=== PATIENT | male | born 1950 | race Caucasian/White ===

== ENCOUNTER → 2017-01-31 | Outpatient (CLI) | payer OTHER | LOC: FCPNEURO 23:28 | PROVIDERS: ATTEND Psychiatry & Neurology Sleep Medicine | DX: G47.33 Obstructive sleep apnea (adult) (pediatric) (principal) ==

== ENCOUNTER → 2017-08-06 | Outpatient (CLI) | payer OTHER | LOC: CIMAGING 10:17 | PROVIDERS: ATTEND Internal Medicine | DX: M25.761 Osteophyte, right knee (principal); M25.762 Osteophyte, left knee; E66.9 Obesity, unspecified | CPT/HCPCS: 73565-PO ==

== ENCOUNTER 2017-10-08 15:57 | Inpatient (IN) | payer OTHER ==
[2017-10-08] MEDS ORDERED: VANCOMYCIN 1.5 GM in NS 250 ML IV ONE (16:18)
[2017-10-08] MEDS ORDERED: NS 1,000 ML IV ONE (16:18)
--- NOTE | 2017-10-08 16:32 | EDPHY ---
H & P Time Seen by Provider: 10/08/17 16:12 HPI/ROS: HPI Facial swelling and redness. 67-year-old male from the office of his primary care physician Dr. Arvizu upstairs. This patient reports that 2 days ago he noticed a sensation of fullness below his right eye and over his right cheek. He then noticed that the area looked red and felt warm. It has progressively increased to involve his right maxilla area from his upper lip to his lower eyelid. It has also crossed over to the other side of his face and involves the left maxilla area but not to a great extent. He reports that it feels tender and swollen to the touch. He reports fever at home. He denies any associated acute dental pain or dental work recently. Denies any facial lacerations or other facial trauma. No history of sinusitis or upper respiratory infection. He has a history of type 2 diabetes. ROS: Constitutional: No fever, no chills. No weakness. Eyes: No discharge. No changes in vision. ENT: No sore throat. No nasal congestion or rhinorrhea. As above. Respiratory: No cough. No shortness of breath. Cardiac: No chest pain, no palpitations. Gastrointestinal: No abdominal pain, no vomiting, no diarrhea. Genitourinary: No hematuria. No dysuria or increased frequency with urination. Musculoskeletal: No back pain. No neck pain. No myalgias or arthralgias. Skin: As above. Neurological: No headache. No focal weakness or altered sensation. Past medical history: Prostate cancer, type 2 diabetes, uses a CPAP machine for sleep apnea at night. Primary care physician is Dr. Arvizu. His urologist is Dr. Escobedo. He was on testosterone therapy for a while but no longer uses this. Social history: Nonsmoker. Currently here by himself. Has relatives in the area. Denies alcohol. Physical Exam: General Appearance: Alert, no distress. This patient is responding to questions appropriately and in full sentences. This patient appears well- hydrated and well-nourished. Eyes: Pupils equal and round no pallor or injection. No lid edema, erythema or injection. No pain with extraocular movements. ENT, Mouth: Mucous membranes are moist. The pharyngeal tissues are unremarkable. No edema or swelling. No asymmetry suggestive of abscess. No erythema or exudates. Respiratory: There are no retractions, lungs are clear to auscultation with good air movement bilaterally. Cardiovascular: Regular rate and rhythm. No murmur. Gastrointestinal: Obese habitus. Abdomen is soft and nontender, no masses, bowel sounds normal. No focal tenderness at McBurney's point. No Hui sign. Neurological: Motor sensory function is grossly intact. Cranial nerves are normal. Gait is normal. Skin: Warm and dry. He has a diffuse erythema with associated induration and tenderness on palpation involving the right side and left side of the face crossing over his nasal bridge. It tracks on the right side of the face from the upper lip up through the lower eyelid. It involves mostly the area over the maxilla on the left side. No palpable abscess. No bony deformity or crepitus noted on palpation of the area. Musculoskeletal: Neck is supple and nontender. No cervical, submandibular lymphadenopathy. Extremities are symmetrical. All joints range without pain or impingement. Psychiatric: No agitation. No depression. Database: EKG: Imaging: Facial CT with contrast: No evidence of abscess or osteomyelitis. Soft tissue induration edema noted right maxilla extending up from the right lip. Results were discussed with staff radiologist Dr. Rj Brady. Procedures: Emergency department course: IV placed. His vital signs have been reviewed. He is moderately hypertensive. He is tachycardic at 124. Temperature is 37.6degrees. Standard blood work as well as venous lactate and blood cultures to be obtained. He was started on IV normal saline with 1 L to be given over the next hour initially. He will be started on IV vancomycin and IV Invanz after blood cultures obtained. Contrast enhanced CT imaging of the face will be obtained as well. The patient endorses. 6:35 p.m., patient's initial venous lactate is 3.0. Severe sepsis protocol initiated at this time. 2nd lactate drawn. Hospitalist paged for admission. There was a delay in obtaining his results secondary to equipment failure in our laboratory requiring his blood to be sent over to the [facility] for analysis. 7:10 p.m., I spoke with on-call hospitalist Dr. Leonila Hunter. Case discussed in detail with her. She accepts the patient for admission. I have filled out the appropriate transfer paperwork. Patient's vital signs reviewed. He has had almost 2 L of IV normal saline. Borderline tachycardic at this time running at 100-106. He has never been hypotensive or febrile in the emergency department. He is refusing ambulance transfer. The patient competently engages in shared decision making. They demonstrate capacitance to make decisions. He will transfer to [facility] by private vehicle. Differential Diagnosis: The differential diagnosis on this patient includes but is not limited to facial cellulitis, periorbital cellulitis, erysipelas. Facial abscess, retro- orbital cellulitis, facial trauma unlikely. This represents a partial list of diagnoses considered. These considerations are based on history, physical exam , past history, reassessment and diagnostic testing. Smoking Status: Former smoker Constitutional: Initial Vital Signs Temperature (C) 37.6 C 10/08/17 16:03 Heart Rate 124 H 10/08/17 16:03 Respiratory Rate 20 10/08/17 16:03 Blood Pressure 161/77 H 10/08/17 16:03 O2 Sat (%) 93 10/08/17 16:03 O2 Delivery Mode Room Air Allergies/Adverse Reactions: No Known Allergies Allergy (Verified 10/08/17 16:10) Home Medications: Medication Instructions Recorded Aspirin [Aspirin 325 mg (*)] 325 mg PO DAILY 04/18/15 Herbals/Supplements -Info Only 1 ea PO DAILY 04/18/15 [place]-3 Fatty Acids [Fish Oil 1000 1,000 mg PO DAILY 04/18/15 mg (*)] Rosuvastatin Calcium [Crestor 40mg 20 mg PO HS 04/18/15 (*)] metFORMIN HCL [Glucophage 500 mg 1,000 mg PO DAILY@20 04/18/15 (*)] metFORMIN HCL [Glucophage 500 mg 1,500 mg PO DAILY@08 04/18/15 (*)] Gabapentin 10/03/17 Januvia 25 MG (*) 10/03/17 Medical Decision Making - Diagnostics Imaging Results: Imaging Impressions Face CT 10/08/17 16:22 Impression: Findings consistent with facial cellulitis are noted with no abnormal fluid collection seen to suggest abscess. Results called and discussed with Rahel Jeff MD, on 10/08/2017 at 18 :49. - Data Points Laboratory Results: Laboratory Results 10/08/17 16:36 10/08/17 16:36 10/08/17 10/08/17 10/08/17 18:47 16:36 16:36 WBC 9.94 10^3/uL H 10^3/uL (3.80-9.50) RBC 4.11 10^6/uL L 10^6/uL (4.40-6.38) Hgb 12.4 g/dL L g/dL (13.7-17.5) Hct 36.1 % L % (40.0-51.0) MCV 87.8 fL fL (81.5-99.8) MCH 30.2 pg pg (27.9-34.1) MCHC 34.3 g/dL g/dL (32.4-36.7) RDW 13.3 % % (11.5-15.2) Plt Count 124 10^3/uL L 10^3/uL (150-400) MPV 10.6 fL fL (8.7-11.7) Neut % (Auto) 76.7 % H % (39.3-74.2) Lymph % (Auto) 11.7 % L % (15.0-45.0) [place] % (Auto) 9.6 % % (4.5-13.0) Eos % (Auto) 1.0 % % (0.6-7.6) Baso % (Auto) 0.2 % L % (0.3-1.7) Nucleat RBC Rel Count 0.0 % % (0.0-0.2) Absolute Neuts (auto) 7.63 10^3/uL H 10^3/uL (1.70-6.50) Absolute Lymphs (auto) 1.16 10^3/uL 10^3/uL (1.00-3.00) Absolute Monos (auto) 0.95 10^3/uL H 10^3/uL (0.30-0.80) Absolute Eos (auto) 0.10 10^3/uL 10^3/uL (0.03-0.40) Absolute Basos (auto) 0.02 10^3/uL 10^3/uL (0.02-0.10) Absolute Nucleated RBC 0.00 10^3/uL 10^3/uL (0-0.01) Immature Gran % 0.8 % % (0.0-1.1) Immature Gran # 0.08 10^3/uL 10^3/uL (0.00-0.10) PT 12.6 SEC SEC (12.0-15.0) INR 0.95 (0.83-1.16) APTT 26.9 SEC SEC (23.0-38.0) VBG Lactic Acid 2.0 mmol/L mmol/L (0.7-2.1) Sodium Potassium Chloride Carbon Dioxide Anion Gap BUN Creatinine Estimated GFR Glucose Calcium Total Bilirubin Conjugated Bilirubin Unconjugated Bilirubin AST ALT Alkaline Phosphatase Total Protein Albumin 10/08/17 10/08/17 16:36 16:31 WBC RBC Hgb Hct MCV MCH MCHC RDW Plt Count MPV Neut % (Auto) Lymph % (Auto) [place] % (Auto) Eos % (Auto) Baso % (Auto) Nucleat RBC Rel Count Absolute Neuts (auto) Absolute Lymphs (auto) Absolute Monos (auto) Absolute Eos (auto) Absolute Basos (auto) Absolute Nucleated RBC Immature Gran % Immature Gran # PT INR APTT VBG Lactic Acid 3.0 mmol/L H mmol/L (0.7-2.1) Sodium 136 mEq/L mEq/L (134-144) Potassium 4.3 mEq/L mEq/L (3.5-5.2) Chloride 100 mEq/L mEq/L (97-110) Carbon Dioxide 21 mEq/l L mEq/l (22-31) Anion Gap 15 mEq/L mEq/L (8-16) BUN 17 mg/dL mg/dL (7-23) Creatinine 0.7 mg/dL mg/dL (0.7-1.3) Estimated GFR > 60 Glucose 189 mg/dL H mg/dL (70-100) Calcium 9.8 mg/dL mg/dL (8.5-10.4) Total Bilirubin 0.6 mg/dL mg/dL (0.1-1.4) Conjugated Bilirubin 0.4 mg/dL mg/dL (0.0-0.5) Unconjugated Bilirubin 0.2 mg/dL mg/dL (0.0-1.1) AST 30 IU/L IU/L (17-59) ALT 57 IU/L IU/L (21-72) Alkaline Phosphatase 69 IU/L IU/L (38-126) Total Protein 7.3 g/dL g/dL (6.3-8.2) Albumin 4.2 g/dL g/dL (3.5-5.0) Medications Given: Discontinued Medications Ertapenem (Invanz) 1 gm IVP EDNOW ONE PRN Reason: Protocol Stop: 10/08/17 19:08 Last Admin: 10/08/17 19:14 Dose: 1 gm Sodium Chloride (Ns) 1,000 mls @ 0 mls/hr IV ONCE ONE; Wide Open PRN Reason: Protocol Stop: 10/08/17 16:19 Last Admin: 10/08/17 16:34 Dose: 1,000 mls Vancomycin HCl 1.5 gm/ Sodium (Chloride) 250 mls @ 250 mls/hr IV EDNOW ONE PRN Reason: Protocol Stop: 10/08/17 17:17 Last Admin: 10/08/17 16:34 Dose: 250 mls Sodium Chloride (Ns) 4,200 mls @ 8,400 mls/hr 30 ml/kg infuse over 30 min ( 4200 ml) IV EDNOW ONE PRN Reason: Protocol Stop: 10/08/17 19:00 Last Admin: 10/08/17 18:46 Dose: 2,000 mls Departure - Departure Disposition: [facility] Acute Clinical Impression: Facial cellulitis, Hyperglycemia
[2017-10-08 16:43] LABS: % IMMATURE GRANULYOCYTES 0.8 % (0.0-1.1); ABSOLUTE IMMATURE GRANULOCYTES 0.08 10^3/uL (0.00-0.10); ADD DIFF? NO; ADD MORPH? NO; ADD SCAN? NO; ATYPICAL LYMPHOCYTE FLAG 0 (0-99); FRAGMENT RBC FLAG 0 (0-99); HEMATOCRIT 36.1 % (40.0-51.0); HEMOGLOBIN 12.4 g/dL (13.7-17.5); LEFT SHIFT FLG 10 (0-99); LIPEMIA HEMOLYSIS FLAG 90 (0-99); MEAN CELL HEMOGLOBIN 30.2 pg (27.9-34.1); MEAN CELL HEMOGLOBIN CONCENTR. 34.3 g/dL (32.4-36.7); MEAN CELL VOLUME 87.8 fL (81.5-99.8); MEAN PLATELET VOLUME 10.6 fL (8.7-11.7); PLATELET CLUMPS FLAG 0 (0-99); PLATELET COUNT 124 10^3/uL (150-400); RED BLOOD CELL COUNT 4.11 10^6/uL (4.40-6.38); RED CELL DISTRIBUTION WIDTH 13.3 % (11.5-15.2)
[2017-10-08] MEDS ORDERED: IOPAMIDOL (ISOVUE-300) 100 ML BTL ONE (16:49)
[2017-10-08 17:52] LABS: ALANINE AMINOTRANSFERASE 57 IU/L (21-72); ALBUMIN 4.2 g/dL (3.5-5.0); ALKALINE PHOSPHATASE 69 IU/L (38-126); ANION GAP 15 mEq/L (8-16); ASPARTATE AMINOTRANSFERASE 30 IU/L (17-59); BILIRUBIN,TOTAL 0.6 mg/dL (0.1-1.4); BILIRUBIN-CONJUGATED 0.4 mg/dL (0.0-0.5); BILIRUBIN-UNCONJUGATED 0.2 mg/dL (0.0-1.1); CALCIUM 9.8 mg/dL (8.5-10.4); CARBON DIOXIDE 21 mEq/l (22-31); CHLORIDE 100 mEq/L (97-110); CREATININE 0.7 mg/dL (0.7-1.3); GLOMERULAR FILTRATION RATE > 60; GLUCOSE 189 mg/dL (70-100); POTASSIUM 4.3 mEq/L (3.5-5.2); SODIUM 136 mEq/L (134-144); TOTAL PROTEIN 7.3 g/dL (6.3-8.2)
[2017-10-08] MEDS ORDERED: SODIUM CHLORIDE IV ONE (18:31)
[2017-10-08 18:43] LABS: APTT 26.9 SEC (23.0-38.0); INR 0.95 (0.83-1.16); PROTIME(PATIENT) 12.6 SEC (12.0-15.0)
[2017-10-08] MEDS ORDERED: ERTAPENEM 1 GM VIAL IVP ONE (19:07)
[2017-10-08] MEDS ORDERED: oxyCODONE IR 5 MG TAB PO PRN (20:43)
[2017-10-08] MEDS ORDERED: ONDANSETRON DISINTEGRATING 4 MG TAB PO PRN (20:43)
[2017-10-08] MEDS ORDERED: IBUPROFEN 200 MG TAB PO PRN (20:43)
[2017-10-08] MEDS ORDERED: ONDANSETRON 4 MG/2 ML VIAL IVP PRN (20:43)
[2017-10-08] MEDS ORDERED: ACETAMINOPHEN 325 MG TAB PO PRN (20:43)
--- NOTE | 2017-10-08 21:01 | PDGENHP ---
History and Physical - Chief Complaint facial erythema, pain - History of Present Illness 67 yo male with h/o present to ED with facial pain and redness. He noted focal pain along his right mandible 2 days prior to arrival, then he felt the soreness high up on his cheek. This morning, he awoke with redness and pain along his right cheek. He went to see his PCP and was sent to the ED, where his temp was 100.6. He previously denied fevers. He denies rigors, but mild chills. He notes he wears a cpap for past 6 months and has a poor seal. He had a chipped tooth repaired on his right upper jaw 2-3 months ago. Still has some sensitivity, but no pain. He also has a bridge for his upper teeth, which he removes at night, but notes the CPAP mask squeezes this area. No CP, SOB, abdmoninal pain, N/V/D. In the ED, he received IV Vancomycin and Invanz after blood cultures were drawn. He is admitted to the hospital for further management. History Information - Allergies/Home Medication List Allergies/Adverse Reactions: No Known Allergies Allergy (Verified 10/08/17 16:10) Home Medications: Aspirin [Aspirin 325 mg (*)] 325 mg PO DAILY 04/18/15 [Last Taken 04/21/15] Herbals/Supplements -Info Only 1 ea PO DAILY 04/18/15 [Last Taken 04/21/15] [place]-3 Fatty Acids [Fish Oil 1000 mg (*)] 1,000 mg PO DAILY 04/18/15 [Last Taken 04/21/15] Rosuvastatin Calcium [Crestor 40mg (*)] 20 mg PO HS 04/18/15 [Last Taken ] metFORMIN HCL [Glucophage 500 mg (*)] 1,000 mg PO DAILY@20 04/18/15 [Last Taken 04/26/15 20:00] metFORMIN HCL [Glucophage 500 mg (*)] 1,500 mg PO DAILY@08 04/18/15 [Last Taken 04/26/15 08:00] Gabapentin 10/03/17 [Last Taken Unknown] Januvia 25 MG (*) 10/03/17 [Last Taken Unknown] I have personally reviewed and updated: family history, medical history, social history, surgical history - Past Medical History diabetes type 2 Additional medical history: sleep apnea - on cpap. Type 2 DM. hyperlipidemia. peripheral neuropathy. h/o prostate cancer - Surgical History Additional surgical history: prostate surgery - Family History Additional family history: dad age 97. mom of kidney failure - Social History Smoking Status: Former smoker Alcohol Use: None Drug Use: None Additional social history: Lives with his sister and her son. He is independent in his ADL's. He is a laborer general. Review of Systems Review of Systems: ROS: 10pt was reviewed & negative except for what was stated in HPI & below Physical Exam Physical Exam: Temp Pulse Resp BP Pulse Ox 36.6 C 114 H 20 162/83 H 94 10/08/17 20:46 10/08/17 20:46 10/08/17 20:46 10/08/17 20:46 10/08/17 20:46 Constitutional: no apparent distress Eyes: PERRL, other (+facial erythema and induration over right zygoma, extending across nasal bridge and into left zygoma, also involves with philtrum ) Ears, Nose, Mouth, Throat: moist mucous membranes Cardiovascular: regular rate and rhythym Respiratory: no respiratory distress, clear to auscultation Gastrointestinal: normoactive bowel sounds, soft, non-tender abdomen, other ( obese) Skin: warm Musculoskeletal: full muscle strength Neurologic: AAOx3 Psychiatric: interacting appropriately Lab Data & Imaging Review 10/08/17 16:36 10/08/17 16:36 WBC 9.94 10^3/uL (3.80-9.50) H 10/08/17 16:36 RBC 4.11 10^6/uL (4.40-6.38) L 10/08/17 16:36 Hgb 12.4 g/dL (13.7-17.5) L 10/08/17 16:36 Hct 36.1 % (40.0-51.0) L 10/08/17 16:36 MCV 87.8 fL (81.5-99.8) 10/08/17 16:36 MCH 30.2 pg (27.9-34.1) 10/08/17 16:36 MCHC 34.3 g/dL (32.4-36.7) 10/08/17 16:36 RDW 13.3 % (11.5-15.2) 10/08/17 16:36 Plt Count 124 10^3/uL (150-400) L 10/08/17 16:36 MPV 10.6 fL (8.7-11.7) 10/08/17 16:36 Neut % (Auto) 76.7 % (39.3-74.2) H 10/08/17 16:36 Lymph % (Auto) 11.7 % (15.0-45.0) L 10/08/17 16:36 [place] % (Auto) 9.6 % (4.5-13.0) 10/08/17 16:36 Eos % (Auto) 1.0 % (0.6-7.6) 10/08/17 16:36 Baso % (Auto) 0.2 % (0.3-1.7) L 10/08/17 16:36 Nucleat RBC Rel Count 0.0 % (0.0-0.2) 10/08/17 16:36 Absolute Neuts (auto) 7.63 10^3/uL (1.70-6.50) H 10/08/17 16:36 Absolute Lymphs (auto) 1.16 10^3/uL (1.00-3.00) 10/08/17 16:36 Absolute Monos (auto) 0.95 10^3/uL (0.30-0.80) H 10/08/17 16:36 Absolute Eos (auto) 0.10 10^3/uL (0.03-0.40) 10/08/17 16:36 Absolute Basos (auto) 0.02 10^3/uL (0.02-0.10) 10/08/17 16:36 Absolute Nucleated RBC 0.00 10^3/uL (0-0.01) 10/08/17 16:36 Immature Gran % 0.8 % (0.0-1.1) 10/08/17 16:36 Immature Gran # 0.08 10^3/uL (0.00-0.10) 10/08/17 16:36 PT 12.6 SEC (12.0-15.0) 10/08/17 16:36 INR 0.95 (0.83-1.16) 10/08/17 16:36 APTT 26.9 SEC (23.0-38.0) 10/08/17 16:36 VBG Lactic Acid 2.0 mmol/L (0.7-2.1) 10/08/17 18:47 Sodium 136 mEq/L (134-144) 10/08/17 16:36 Potassium 4.3 mEq/L (3.5-5.2) 10/08/17 16:36 Chloride 100 mEq/L (97-110) 10/08/17 16:36 Carbon Dioxide 21 mEq/l (22-31) L 10/08/17 16:36 Anion Gap 15 mEq/L (8-16) 10/08/17 16:36 BUN 17 mg/dL (7-23) 10/08/17 16:36 Creatinine 0.7 mg/dL (0.7-1.3) 10/08/17 16:36 Estimated GFR > 60 10/08/17 16:36 Glucose 189 mg/dL (70-100) H 10/08/17 16:36 Calcium 9.8 mg/dL (8.5-10.4) 10/08/17 16:36 Total Bilirubin 0.6 mg/dL (0.1-1.4) 10/08/17 16:36 Conjugated Bilirubin 0.4 mg/dL (0.0-0.5) 10/08/17 16:36 Unconjugated Bilirubin 0.2 mg/dL (0.0-1.1) 10/08/17 16:36 AST 30 IU/L (17-59) 10/08/17 16:36 ALT 57 IU/L (21-72) 10/08/17 16:36 Alkaline Phosphatase 69 IU/L (38-126) 10/08/17 16:36 Total Protein 7.3 g/dL (6.3-8.2) 10/08/17 16:36 Albumin 4.2 g/dL (3.5-5.0) 10/08/17 16:36 Assessment & Plan Assessment: Facial cellulitis - Suspect CPAP mask may be culprit with poor fit associated with dental bridge and infrequent cleaning. BCx's pending. Lactate normalized. Only 1/4 SIRS on arrival, HR improved after IVF's. -Cont Vanc/Invanz for now -ID consult in am for further atbx recommendations -No CPAP mask tonight due to infection/induration ALANNAH - deferring CPAP mask tonight. RT to evaluate fit and advised pt to return to sleep clinic to troubleshoot fit problems. Also addressed cleaning. -prn O2 during night for now Type 2 DM - bg's generally well controlled with a1c <7 per pt. -SSI -hold metformin given recent contrast study Hyperlipidemia - cont statin Full code DVT PPLX - mod risk, Lovenox Dispo - inpt, suspect he'll require >48 hrs hospitalization for moderately severe facial cellulitis and IV atbx
[2017-10-08] MEDS ORDERED: D50W 25 GM/50 ML SYR IVP PRN (21:10)
[2017-10-09] MEDS: VANCOMYCIN 1.25 GM in D5W 250 ML IV SCH ×2 (00:06→08:20)
[2017-10-09] MEDS: SODIUM CL NASAL 45 ML BTL EACHNARE PRN ×3 (04:35→21:20)
[2017-10-09 05:37] LABS: % IMMATURE GRANULYOCYTES 0.8 % (0.0-1.1); ABSOLUTE IMMATURE GRANULOCYTES 0.05 10^3/uL (0.00-0.10); ADD DIFF? NO; ADD MORPH? NO; ADD SCAN? NO; ATYPICAL LYMPHOCYTE FLAG 0 (0-99); FRAGMENT RBC FLAG 0 (0-99); HEMATOCRIT 33.8 % (40.0-51.0); HEMOGLOBIN 11.8 g/dL (13.7-17.5); LEFT SHIFT FLG 10 (0-99); LIPEMIA HEMOLYSIS FLAG 90 (0-99); MEAN CELL HEMOGLOBIN 31.2 pg (27.9-34.1); MEAN CELL HEMOGLOBIN CONCENTR. 34.9 g/dL (32.4-36.7); MEAN CELL VOLUME 89.4 fL (81.5-99.8); PLATELET CLUMPS FLAG 0 (0-99); PLATELET COUNT 99 10^3/uL (150-400); RED BLOOD CELL COUNT 3.78 10^6/uL (4.40-6.38); RED CELL DISTRIBUTION WIDTH 13.3 % (11.5-15.2)
[2017-10-09 05:53] LABS: ANION GAP 15 mEq/L (8-16); CALCIUM 9.2 mg/dL (8.5-10.4); CARBON DIOXIDE 19 mEq/l (22-31); CHLORIDE 106 mEq/L (97-110); CREATININE 0.6 mg/dL (0.7-1.3); GLOMERULAR FILTRATION RATE > 60; GLUCOSE 153 mg/dL (70-100); SODIUM 140 mEq/L (134-144)
[2017-10-09] MEDS: INSULIN LISPRO 100 UNIT/ML SC SCH ×3 (08:19→18:44)
[2017-10-09] MEDS: glipiZIDE XL 5 MG TAB PO SCH (08:20)
[2017-10-09] MEDS: DOCUSATE SODIUM 100 MG CAP PO SCH (08:20)
[2017-10-09] MEDS: ASPIRIN 325 MG TAB PO SCH (08:20)
--- NOTE | 2017-10-09 08:49 | PDMN ---
Medical Necessity Medical necessity: M70 cellulitis- mod severe facial cellulitis req IV abx - suspect > 2 midnights
[2017-10-09] MEDS ORDERED: ERTAPENEM 1 GM VIAL IVP SCH ×2 (09:00)
[2017-10-09] MEDS ORDERED: ENOXAPARIN 40 MG/0.4 ML SYR SC SCH (09:00)
--- NOTE | 2017-10-09 12:21 | HOSPPROG ---
Hospitalist Progress Note Assessment/Plan: 67y male with c/o face pain and swelling. First encounter, chart reviewed. D/W ID. Facial cellulitis - CPAP mask may be culprit with poor fit associated with dental bridge and infrequent cleaning. BCx's pending. Lactate normalized. -Cont Vanc/Invanz for now -ID consult in am for further abx recommendations -No CPAP mask tonight due to infection/induration ALANNAH - deferring CPAP mask tonight. RT to evaluate fit and advised pt to return to sleep clinic to troubleshoot fit problems. Also addressed cleaning. -prn O2 during night for now Type 2 DM - bg's generally well controlled with a1c <7 per pt. -SSI -hold metformin given recent contrast study Hyperlipidemia - cont statin Full code DVT PPLX - mod risk, Lovenox Dispo - inpt, suspect he'll require >48 hrs hospitalization for moderately severe facial cellulitis and IV atbx Subjective: Feels better. Face still tight and swollen. No other issues. Objective: Vital Signs Temp Pulse Resp BP Pulse Ox 36.6 C 90 14 127/60 H 93 10/09/17 07:40 10/09/17 07:40 10/09/17 07:40 10/09/17 07:40 10/09/17 07:40 Laboratory Results 10/09/17 04:23 10/09/17 04:23 10/08/17 10/09/17 10/10/17 05:59 05:59 05:59 Intake Total 2500 Output Total 650 Balance 1850 PT 12.6 SEC (12.0-15.0) 10/08/17 16:36 INR 0.95 (0.83-1.16) 10/08/17 16:36 - Physical Exam Constitutional: appears nourished, not in pain, obese Eyes: PERRL, anicteric sclera, EOMI Ears, Nose, Mouth, Throat: moist mucous membranes, hearing normal, ears appear normal Cardiovascular: regular rate and rhythym, No JVD, No edema Respiratory: no respiratory distress, no rales or rhonchi, reduced air movement Gastrointestinal: No tenderness, No ascites, No guarding Skin: warm, no induration, erythema, No mottled Musculoskeletal: full muscle strength, normal joint ROM, no joint effusions Neurologic: AAOx3 Psychiatric: interacting appropriately, not anxious, not encephalopathic, thought process linear ICD10 Worksheet Patient Problems: Problems Problem Status Onset Prostate cancer Acute Facial cellulitis Acute Hyperglycemia Acute
--- NOTE | 2017-10-09 15:57 | ASMTCMCOM ---
CM Note CM Note Notes: No needs identified, anticipate will dc home with support of sister when medically stable. CM available for any changes. Date Signed: 10/09/2017 03:56 PM Electronically Signed By:Lakeisha Mattson RN
[2017-10-09] MEDS: ceFAZolin 2 GM/DEXTROSE 100 ML IV SCH (21:15)
[2017-10-09] MEDS: ROSUVASTATIN CALCIUM 40 MG TAB PO SCH (21:16)
[2017-10-09] MEDS: GABAPENTIN 100 MG CAP PO SCH (21:16)
[2017-10-10] MEDS: ceFAZolin 2 GM/DEXTROSE 100 ML IV SCH ×3 (05:24→21:32)
[2017-10-10] MEDS: INSULIN LISPRO 100 UNIT/ML SC SCH ×3 (09:01→17:47)
[2017-10-10] MEDS: ASPIRIN 325 MG TAB PO SCH (09:02)
[2017-10-10] MEDS: glipiZIDE XL 5 MG TAB PO SCH (09:02)
[2017-10-10] MEDS: DOCUSATE SODIUM 100 MG CAP PO SCH (09:02)
--- NOTE | 2017-10-10 09:31 | GCON ---
[f rep st] CONSULTATION LATE ENTRY INFECTIOUS DISEASE CONSULTATION DATE OF CONSULTATION: 10/09/2017 REFERRING PHYSICIAN: Tigist Blunt NP REASON FOR REFERRAL: Facial cellulitis. HISTORY OF PRESENT ILLNESS: The patient is a 67-year-old male with past medical history significant for obstructive sleep apnea and type 2 diabetes, as well as peripheral neuropathy, who was admitted t [facility] on 10/08/2017 secondary to facial pain and erythema. Over the previous 2 days, he noted increased redness and swelling of the soft tissues over the bridge of his nose and luis f ateral cheeks, right greater than left. He was admitted and started on vancomycin and ertapenem. He has tolerated these drugs to date. He denies any further fevers or chills. Still notes swelling an d tightness in the soft tissues of his face. He states he has never had such an illness or presentat ion before. He worries this may be initiated due to his CPAP mask. PAST MEDICAL HISTORY: 1. Type 2 diabetes. 2. Sleep apnea. 3. Hyperlipidemia. 4. History of prostate cancer. 5. Peripheral neuropathy. PAST SURGICAL HISTORY: Status post prostate surgery. ANTIBIOTICS: 1. Vancomycin. 2. Ertapenem. ALLERGIES: Patient has no known drug allergies. SOCIAL HISTORY: Patient has a remote history of tobacco use. No alcohol or drug use. He works as a general expeditor. FAMILY HISTORY: Reviewed but noncontributory. REVIEW OF SYSTEMS: Other than that detailed above in the History of Present Illness, a comprehensive 10-system review is negative. PHYSICAL EXAMINATION: VITAL SIGNS: Temperature maximum is 37.6, temperature current is 36.9, heart rate 95, respiratory rate is 16, blood pressure is 154/73. GENERAL: Patient is a well-formed, obese male, in no acute distress. He is not toxic in appearance. He is alert and oriented x3. He has a pleasant demeanor. HEENT: Normocephalic for age. Atraumatic. No scleral icterus. No oral lesions . No drainage from the nares. Eyes: Lids and conjunctivae are within normal limits. Pupils are eq ual and round bilaterally. NECK: Supple. No meningismus. LUNGS: Clear to auscultation bilaterall y with good effort. HEART: Regular rate and rhythm. No significant peripheral edema. SKIN: Warm and dry to the touch. Patient has a confluent erythematous rash with moderate edema over the bridge of his nose and in the cheeks bilaterally. It stretches inferiorly down to the nasal labial fold. T here are no pustules seen. There are no areas of fluctuance. It is mildly tender to palpation. It is warm to touch, as well. LABORATORY DATA: Patient has a CBC dated 10/09/2017, shows a white blood cell count of 6.65, hemoglo bin of 11.8, hematocrit of 33.8, and platelet count of 99. Differential is within normal limits. Se rum chemistries on 10/09/2017 are all within normal limits. Creatinine 0.6. MICROBIOLOGIC DATA: Patient has blood cultures dated 10/08/2017, which are no growth to date. ASSESSMENT: Facial cellulitis. I agree it is probably secondary to irritation or chafing from his C PAP mask. I think that the likely causes are typical skin bacteria such as streptococcus and staphyl ococci. Vancomycin and ertapenem are broad. I think we can empirically narrow this to cefazolin. T his would also allow for an easy transition to oral Keflex upon enough improvement. This was explain ed to the patient in detail. He voiced his understanding. We will change to cefazolin monotherapy 2 g IV q.8 hours today. PLAN: 1. Discontinue both vancomycin and ertapenem. 2. Start cefazolin 2 g IV q.8 hours. 3. Follow clinical appearance and hopefully discharge the patient in the next 24-48 hours on oral Ke flex. /[id number]/MODL
--- NOTE | 2017-10-10 10:12 | PCMIDPN ---
Assessment/Plan: # Bilateral facial Erysipelas, this is my 1st exam but reported slight improvement over nasolabial fold. Strongly suspect streptococcus. WBC normalized yesterday, AF --continue cefazolin IV, another day or 2 of IV antibiotics then can transition to PO Keflex --keep HOB elevated w sleeping --adjust CPAP fitting Meds, Abx #2 cefazolin 2gm IV q8h Microbiology 10/08/17 16:36 Blood Cx (2) : NGTD Care coordinated with Tigist Blunt [employer]BMAR[employer] WORK[employer] Subjective: patient reports feeling better no diarrhea no rash Objective: Vital Signs Temp Pulse Resp BP Pulse Ox 36.5 C 86 20 143/74 H 96 10/10/17 08:00 10/10/17 08:00 10/10/17 08:00 10/10/17 08:00 10/10/17 08:00 Laboratory Results 10/09/17 04:23 10/09/17 04:23 10/09/17 10/10/17 10/11/17 05:59 05:59 05:59 Intake Total 2500 740 Output Total 650 200 Balance 1850 540 - Physical Exam General Appearance: alert, no apparent distress EENT: other (extensive dental work, MMM), No scleral icterus Neck: supple, No lymphadenopathy (L), No lymphadenopathy (R) Cardiac/Chest: regular rate, rhythm Abdomen: non-tender, soft Skin: erythema (B cheeks and over nasolabial fold), No rash Neuro/Psych: alert, normal mood/affect, oriented x 3 ICD10 Worksheet Patient Problems: Problems Problem Status Onset Facial cellulitis Acute Hyperglycemia Acute Prostate cancer Acute
--- NOTE | 2017-10-10 11:52 | HOSPPROG ---
Hospitalist Progress Note Assessment/Plan: 67y male with c/o face pain and swelling. D/W D Leatha. Facial cellulitis - CPAP mask may be culprit with poor fit associated with dental bridge. BCx's NGTD Lactate normalized. IV cefazolin per ID will transition to PO when improved ALANNAH - deferring CPAP mask currently advised pt to return to sleep clinic to troubleshoot fit problems. prn O2 during night for now Type 2 DM - bg's generally well controlled with a1c <7 per pt. SSI hold metformin given recent contrast study restart tomorrow Hyperlipidemia - cont statin Full code DVT PPLX - mod risk, Lovenox Dispo - inpt,cont IV abx Subjective: FEeling a bit better. Still having facial swelling and itching. Objective: Vital Signs Temp Pulse Resp BP Pulse Ox 36.5 C 86 20 143/74 H 96 10/10/17 08:00 10/10/17 08:00 10/10/17 08:00 10/10/17 08:00 10/10/17 08:00 Laboratory Results 10/09/17 04:23 10/09/17 04:23 10/09/17 10/10/17 10/11/17 05:59 05:59 05:59 Intake Total 2500 740 Output Total 650 200 Balance 1850 540 PT 12.6 SEC (12.0-15.0) 10/08/17 16:36 INR 0.95 (0.83-1.16) 10/08/17 16:36 - Physical Exam Constitutional: appears nourished, not in pain, obese Eyes: PERRL, anicteric sclera, EOMI Ears, Nose, Mouth, Throat: moist mucous membranes, hearing normal, ears appear normal Cardiovascular: regular rate and rhythym, No JVD, No edema Respiratory: no respiratory distress, no rales or rhonchi, reduced air movement Gastrointestinal: normoactive bowel sounds, No tenderness, No ascites Skin: warm, normal color, erythema Musculoskeletal: normal joint ROM, no joint effusions, generalized weakness Neurologic: AAOx3 Psychiatric: interacting appropriately, not anxious, not encephalopathic, thought process linear ICD10 Worksheet Patient Problems: Problems Problem Status Onset Prostate cancer Acute Facial cellulitis Acute Hyperglycemia Acute
[2017-10-10 15:24] VITALS: RESP 18
[2017-10-10] MEDS: ROSUVASTATIN CALCIUM 40 MG TAB PO SCH (21:32)
[2017-10-10] MEDS: GABAPENTIN 100 MG CAP PO SCH (21:32)
[2017-10-10 22:15] VITALS: O2SAT 95
[2017-10-11] MEDS: ceFAZolin 2 GM/DEXTROSE 100 ML IV SCH (05:02)
[2017-10-11 05:41] LABS: HEMOGLOBIN 11.8 g/dL (13.7-17.5); MEAN CELL HEMOGLOBIN 30.3 pg (27.9-34.1); MEAN CELL HEMOGLOBIN CONCENTR. 33.7 g/dL (32.4-36.7); MEAN CELL VOLUME 89.7 fL (81.5-99.8); RED BLOOD CELL COUNT 3.9 10^6/uL (4.40-6.38); RED CELL DISTRIBUTION WIDTH 13.5 % (11.5-15.2)
[2017-10-11 08:00] VITALS: BP 118/65; PULSE 82; TEMP 98.1
[2017-10-11] MEDS: DOCUSATE SODIUM 100 MG CAP PO SCH (08:07)
[2017-10-11] MEDS: ASPIRIN 325 MG TAB PO SCH (08:07)
[2017-10-11] MEDS: glipiZIDE XL 5 MG TAB PO SCH (08:07)
[2017-10-11] MEDS: INSULIN LISPRO 100 UNIT/ML SC SCH ×2 (08:07→11:59)
[2017-10-11] MEDS ORDERED: ENOXAPARIN 40 MG/0.4 ML SYR SC SCH (09:00)
--- NOTE | 2017-10-11 10:00 | PCMIDPN ---
Assessment/Plan: # Bilateral facial Erysipelas, improved today! clearance of erythema most prominent on R --dc okay today, f/u appt in discharge tap, dc on 1 more week cephalexin 500mg PO TID, [facility] --keep HOB elevated w sleeping --use dove soap for cleansing Meds, Abx #3 cefazolin 2gm IV q8h Microbiology 10/08/17 16:36 Blood Cx (2) : NGTD Care coordinated with Tigist Blunt [employer] Subjective: patient feeling well minimal facial pain Objective: Vital Signs Temp Pulse Resp BP Pulse Ox 36.7 C 82 18 118/65 95 10/11/17 07:58 10/11/17 07:58 10/11/17 07:58 10/11/17 07:58 10/11/17 07:58 Laboratory Results 10/11/17 04:23 10/09/17 04:23 10/10/17 10/11/17 10/12/17 05:59 05:59 05:59 Intake Total 740 105 Output Total 200 Balance 540 105 AF General Appearance: alert, no apparent distress EENT: extensive dental work, MMM, No scleral icterus Neck: supple, No lymphadenopathy (L), No lymphadenopathy (R) Cardiac/Chest: regular rate, rhythm Abdomen: non-tender, soft Skin: erythema B cheeks and over nasolabial fold but significant clearing R, mild clearing L Neuro/Psych: alert, normal mood/affect, oriented x 3 - Time Spent With Patient Time Spent with Patient: greater than 25 minutes Time Spent with Patient: Greater than 25 minutes spent on this patients care, greater than 50% of time spent counseling, educating, and coordinating care regarding the above mentioned plan. ICD10 Worksheet Patient Problems: Problems Problem Status Onset Facial cellulitis Acute Hyperglycemia Acute Prostate cancer Acute
--- NOTE | 2017-10-11 15:40 | GDS ---
[f rep st] DISCHARGE SUMMARY DISCHARGE DIAGNOSES: Bilateral facial cellulitis. CONSULTATIONS: Infectious Disease. STUDIES AND PROCEDURES DONE: CT of the face. PHYSICAL EXAM: GENERAL: The patient is alert. VITAL SIGNS: Afebrile at 36.7, pulse 82, respirator y rate is 18, blood pressure is 118/65. He is saturating 95% on room air. I have seen and evaluated the patient on the day of discharge. HOSPITAL COURSE: The patient is a 67-year-old male who presented to the emergency room with complain ts of facial swelling. He was evaluated and diagnosed with bilateral facial erysipelas. During this hospitalization, he was treated with IV Ancef. He has responded well and will be transitioned to ce phalexin for the outpatient setting. His condition is significantly improved. He is not having any pain, and is eager to be discharged home. I have coordinated care with Dr. Holly Zhang of Infectious Disease, who was in agreement with this plan. The patient does have a history of obstructive sleep apnea, and has been recommended to attend the [facility] sleep clinic for further fitting of his CPAP mask. He will also follow up with Primary Care Physician regarding his type 2 diabetes. There are no pending studies. DISCHARGE MEDICATIONS: Please refer to EMR form. I have provided the patient a prescription for Kef gonzalo at the time of disposition. I have not adjusted any of the patient's previously prescribed other home medications. I spent greater than 35 minutes in the care, coordination, and management of the patient's discharge. /[id number]/MODL
--- NOTE | 2017-10-11 17:33 | ASDISCHSUM ---
Discharge Information Plan Status:Home with No Needs Medically Cleared to Leave: Discharge Date:10/11/2017 01:02 PM CM D/C Disposition:Home, Routine, Self-Care ADT D/C Disposition:Home, Routine, Self-Care Projected Discharge Date:10/11/2017 01:02 PM Transportation at D/C: Discharge Delay Reason: Follow-Up Date:10/11/2017 01:02 PM Discharge Slot: Final Diagnosis: Placement Information Patient Contact Information Contact Name:TRISTIN Relationship:Sister Address: City:[place] Alternate Phone: [facility] [address]/Zip Code:[place] Email: Financial Information Financial Class:Medicare Advantage Plans Primary Plan Desc:[facility] ADVANTAGE PLANS Primary Plan Number:[id number] Secondary Plan Desc: Secondary Plan Number: Assessment Information [facility] CM Progress Note CM Note CM Note Notes: No needs identified, anticipate will dc home with support of sister when medically stable. CM available for any changes. Date Signed: 10/09/2017 03:56 PM Electronically Signed By:Lakeisha Mattson RN Intervention Information
== END 2017-10-11 13:02 | disposition home or self-care (01) | DRG 603 ==
LOC: CED 15:57 → CEDHOLD 19:08 → F3E 20:25
PROVIDERS: ADMIT Hospitalist; ATTEND Hospitalist
DX: A46 Erysipelas (principal); G47.33 Obstructive sleep apnea (adult) (pediatric); E11.65 Type 2 diabetes mellitus with hyperglycemia; Z79.84 Long term (current) use of oral hypoglycemic drugs; E78.5 Hyperlipidemia, unspecified; E66.09 Other obesity due to excess calories; Z68.41 Body mass index [BMI] 40.0-44.9, adult; G62.9 Polyneuropathy, unspecified; Z85.46 Personal history of malignant neoplasm of prostate; Z87.891 Personal history of nicotine dependence
CPT/HCPCS: 70487-PO; 80048-PO; 80076-PO; 83605-PO; 85025-PO; 85610-PO; 85730-PO; 96365; J0690; J1335; J1650; J1815; J3370; Q9967

== ENCOUNTER 2017-12-09 12:07 | Day surgery (SDC) | payer OTHER ==
[2017-12-09] MEDS ORDERED: LR 1,000 ML IV ONE (12:28)
--- NOTE | 2017-12-09 13:05 | PDANEPAE ---
ANE History of Present Illness Patient presents for Colonoscopy ANE Past Medical History - Cardiovascular History Hx Hypertension: No Hx Arrhythmias: No Hx Chest Pain: No Hx Coronary Artery / Peripheral Vascular Disease: No Hx CHF / Valvular Disease: No Hx Palpitations: No - Pulmonary History Hx COPD: No Hx Asthma/Reactive Airway Disease: No Hx Recent Upper Respiratory Infection: No Hx Oxygen in Use at Home: No Hx Sleep Apnea: Yes Sleep Apnea Screening Result - Last Documented: Positive Pulmonary History Comment: HX of sleep apnea - cpap - Neurologic History Hx Cerebrovascular Accident: No Hx Seizures: No Hx Dementia: No Neurologic History Comment: Diabetic neuropathy both feet. - Endocrine History Hx Diabetes: Yes Endocrine History Comment: Type 2-oral meds. - Renal History Hx Renal Disorders: Yes Renal History Comment: Enlarged prostate. - Liver History Hx Hepatic Disorders: No - Neurological & Psychiatric Hx Hx Neurological and Psychiatric Disorders: No - Cancer History Hx Cancer: Yes Cancer History Comment: Prostate CA- hormone tx & radiation - Congenital Disorder History Hx Congenital Disorders: No - GI History Hx Gastrointestinal Disorders: No - Other Health History Other Health History: Family hx - unknown blood cotting condition - takes aspirin preventative. FX nose in past-sinus issues. Upper dental bridge. Lower missing tooth. - Chronic Pain History Chronic Pain: No - Surgical History Prior Surgeries: prostate surgery - aborted 2014 ANE Review of Systems Review of Systems: - Exercise capacity METS (RN): 4 METS ANE Patient History - Allergies Allergies/Adverse Reactions: No Known Allergies Allergy (Verified 10/08/17 16:10) - Home Medications Home Medications: Aspirin [Aspirin 325 mg (*)] 325 mg PO DAILY 04/18/15 [Last Taken 04/21/15] Herbals/Supplements -Info Only 1 ea PO DAILY 04/18/15 [Last Taken 04/21/15] [place]-3 Fatty Acids [Fish Oil 1000 mg (*)] 2,000 mg PO BID 04/18/15 [Last Taken 10/08/17 08:00] Rosuvastatin Calcium [Crestor 40mg (*)] 20 mg PO HS 04/18/15 [Last Taken ] metFORMIN HCL [Glucophage 500 mg (*)] 1,000 mg PO DAILY@04/18/15 [Last Taken 10/07/17 21:00] metFORMIN HCL [Glucophage 500 mg (*)] 1,500 mg PO DAILY@04/18/15 [Last Taken 10/08/17 08:00] Gabapentin [Neurontin 100 MG (*)] 300 mg PO HS 10/03/17 [Last Taken 10/07/17] sitaGLIPtin PHOSPHATE [Januvia 100 MG (*)] 100 mg PO DAILY 10/03/17 [Last Taken 10/08/17] Docusate Sodium [Colace 100 MG (*)] 100 mg PO DAILY 10/08/17 [Last Taken ] Sodium Cl Nasal [Charles [place] (*)] 1 spray NS Q2 PRN 10/08/17 [Last Taken Unknown ] glipiZIDE [Glipizide ER] 5 mg PO DAILY 10/08/17 [Last Taken 10/08/17] - NPO status NPO Status: no food or drink >8 hours NPO Since - Liquids (Date): 12/09/17 NPO Since - Liquids (Time): 05:00 NPO Since - Solids (Date): 12/08/17 NPO Since - Solids (Time): 08:00 - Anes Hx Anes Hx: no prior problems - Smoking Hx Smoking Status: Never smoked - Family Anes Hx Family Hx Anesthesia Complications: none ANE Labs/Vital Signs - Vital Signs Blood Pressure: 135/75 Heart Rate: 90 Respiratory Rate: 16 O2 Sat (%): 93 Height: 180.34 cm Weight: 136.078 kg ANE Physical Exam - Airway Neck exam: FROM Mallampati Score: Class 2 Mouth exam: normal dental/mouth exam - Pulmonary Pulmonary: no respiratory distress - Cardiovascular Cardiovascular: regular rate and rhythym - ASA Status ASA Status: III ANE Anesthesia Plan Anesthesia Plan: GA with mask (RBA discussed)
[2017-12-09] MEDS ORDERED: PROPOFOL/EMULSION 500 MG/50 ML BOTTLE IV ONE (13:12)
[2017-12-09] MEDS ORDERED: LIDOCAINE 2% 5 ML SDV ONE (13:14)
--- NOTE | 2017-12-09 13:20 | PDGENHP ---
History & Physical Chief Complaint: hx polyps History of Present Illness: 67 shira old male with a personal history of polyps presents for surveillance colonoscopy. Pertinent Past, Social, Family History: PMHx: alexander, dm. PSurgHx: Prostatectomy. Relevant Physical Exam: HEENT: anicteric. CV: RRR +s1s2. lungs: CTAB. Abd: soft, nt, + bs Cardiorespiratory Assessment: ASA 3
--- NOTE | 2017-12-09 13:36 | GIREPORT ---
[facility] Surgical Services - Endoscopy Department Patient Name: Antonio Barragan Procedure Date: 12/09/2017 1:14 PM Patient Type: Outpatient Attending MD/ ER Physician: Lenin Sorensen MD Procedure: Colonoscopy Indications: High risk colon cancer surveillance: Personal history of colonic polyps Patient Profile: 67 year old male with a personal history of polyps presents for surveil abilio colonoscopy. Providers: Lenin Sorensen MD Medicines: Monitored Anesthesia Care Complications: No immediate complications. Estimated blood loss: None. Description of Procedure: After obtaining informed consent, the scope was passed under direct vis ion. Throughout the procedure, the patient's blood pressure, pulse, and oxyg en saturations were monitored continuously. The Colonoscope with irrigatio n channel was introduced through the anus with the intention of advancing to the cecum. The scope was advanced to the sigmoid colon before the proce dure was aborted. Medications were given. The colonoscopy was performed with out difficulty. The patient tolerated the procedure well. The quality of th e bowel preparation was good. The rectum was photographed. Findings: The perianal and digital rectal examinations were normal. Pertinent negatives include no palpable rectal lesions. Copious quantities of stool was found in the rectum and in the sigmoid colon. Estimated Blood Loss: Estimated blood loss: none. Post Op Diagnosis: - Stool in the rectum and in the sigmoid colon- Poor preparation - No specimens collected. Recommendation: - Discharge patient to home (with escort). - Resume previous diet. - Continue present medications. - Repeat colonoscopy because the bowel preparation was poor. - Needs 2 day prep with 2 whole preps. - Thank you for allowing me to participate in the care of your patient. Attending Participation: I personally performed the entire procedure. Lenin Sorensen MD Lenin Sorensen MD 12/09/2017 1:35:35 PM This report has been signed electronicallyLenin Sorensen MD Number of Addenda: 0 Note Initiated On: 12/09/2017 1:14 PM [email or web address]
[2017-12-09] MEDS ORDERED: LR 500 ML IV PRN (13:50)
[2017-12-09] MEDS ORDERED: NALOXONE HCL 0.4 MG/ML INJ IVP PRN (13:50)
[2017-12-09] MEDS ORDERED: ONDANSETRON 4 MG/2 ML VIAL IVP PRN (13:50)
--- NOTE | 2017-12-09 13:51 | POSTANESTH ---
Post Anesthetic Evaluation Cardiovascular Status: Similar to Pre-Op Cond Respiratory Status: Similar to Pre-op Cond. Level of Consciousness/Mental Status: Alert and Oriented Pain Control: Adequate, Prn Tx Ordered Nausea/Vomiting Control: Adequate, Prn Tx Ordered Complications Possibly Related to Anesthesia: None Noted
[2017-12-09 14:24] VITALS: BP 132/66; O2SAT 96
[2017-12-09 14:36] VITALS: PULSE 80; RESP 18; TEMP 98.6
== END 2017-12-09 14:35 | disposition home or self-care (01) ==
LOC: FSGY 12:07
PROVIDERS: ATTEND Internal Medicine Gastroenterology
PROC: 0DJD8ZZ Inspection of Lower Intestinal Tract, Via Natural or Artificial Opening Endoscopic (ICD-10-PCS; principal; 2017-12-09 13:15)
DX: Z12.11 Encounter for screening for malignant neoplasm of colon (principal); Z86.010 Personal history of colon polyps; G47.33 Obstructive sleep apnea (adult) (pediatric); E11.42 Type 2 diabetes mellitus with diabetic polyneuropathy
CPT/HCPCS: J2704

== ENCOUNTER → 2018-03-14 | Outpatient (CLI) | payer OTHER | LOC: FIMAGING 10:27 | PROVIDERS: ATTEND Internal Medicine | DX: R27.0 Ataxia, unspecified (principal); E11.42 Type 2 diabetes mellitus with diabetic polyneuropathy ==

== ENCOUNTER → 2018-03-26 | Outpatient (CLI) | payer OTHER ==
[~2018-03-26] MED LIST: IOPAMIDOL (ISOVUE 370) 100 ML BTL IV ONE
== END ==
LOC: FIMAGING 09:58
PROVIDERS: ATTEND Internal Medicine
DX: I65.21 Occlusion and stenosis of right carotid artery (principal); E11.9 Type 2 diabetes mellitus without complications
CPT/HCPCS: 70498; Q9967

== ENCOUNTER 2018-07-10 05:38 | Inpatient (IN) | payer OTHER ==
--- NOTE | 2018-07-08 10:27 | GHP ---
DATE OF ADMISSION: 07/10/2018 Mr. Barragan is a 67-year-old male who was found to have critical right carotid stenosis. This is l argely asymptomatic and was found on screening ultrasound. He does have some vague memory symptoms a nd fatigue, but no focal visual or motor symptoms. Ultrasound suggested a 95% right carotid stenosis . CT angiogram was read as only a 50% carotid stenosis. The patient is on aspirin, and a statin med icine. PAST MEDICAL HISTORY: Includes anemia, type 2 diabetes, hyperlipidemia, morbid obesity, obstructive sleep apnea, peripheral neuropathy, prostate cancer, thrombocytopenia. PAST SURGICAL HISTORY: Denies. MEDICATIONS: Acetaminophen, aspirin, Citrucel, Colace, gabapentin, glipizide, ibuprofen, Januvia, me tformin, omega-3 fatty acids, , rosuvastatin, vitamin D, vitamin E. ALLERGIES: No known drug allergies. FAMILY MEDICAL HISTORY: Noncontributory. SOCIAL HISTORY: The patient is a former smoker and quit 30 years ago. REVIEW OF SYSTEMS: Negative for cardiopulmonary symptoms. Positive for diabetes. PHYSICAL EXAMINATION: GENERAL: A 67-year-old male with an increased BMI, in no acute distress. SARAHI NT: Right carotid bruit. Anicteric. CHEST: Clear to auscultation bilaterally. CARDIAC: Regular rate and rhythm. ABDOMEN: Soft, nontender. EXTREMITIES: Warm, well perfused. NEUROLOGIC: Grossly intact. PSYCH: Normal mood and affect. IMPRESSION: This is a 67-year-old male with right carotid stenosis. Both ultrasound and CT angiogra m images were personally reviewed. Usually, we would rely more heavily on the CT angiogram, however, there is a large calcium volume stenosis at the exact origin of the internal carotid artery and we f eel that the ultrasound is more accurate in this situation. I have discussed with the patient's inte rnist and we will plan for right carotid endarterectomy with EEG monitoring. Risks and options have been fully discussed, including, but not limited to, bleeding, infection, nerve injury, damage to josse rounding structures, and even heart attack, , and stroke, and other problems, and he requests to proceed. /[id number]/MODL
[2018-07-10] MEDS ORDERED: ceFAZolin 2 GM/DEXTROSE 100 ML IV ONE (06:02)
[2018-07-10] MEDS ORDERED: LR 1,000 ML IV ONE (06:04)
[2018-07-10] MEDS ORDERED: PROTAMINE SULFATE 50 MG/5 ML VIAL IVP ONE (06:48)
[2018-07-10] MEDS ORDERED: BUPIVACAINE 0.5% 30 ML SDV ONE (06:48)
[2018-07-10] MEDS ORDERED: THROMBIN (BOVINE) 20,000 UNIT SPRAY TP ONE (06:48)
--- NOTE | 2018-07-10 06:53 | PDANEPAE ---
ANE History of Present Illness R CEA ANE Past Medical History - Cardiovascular History Hx Hypertension: No Hx Arrhythmias: No Hx Chest Pain: No Hx Coronary Artery / Peripheral Vascular Disease: No Hx CHF / Valvular Disease: No Hx Palpitations: No Cardiovascular History Comment: CAROTID STENOSIS - Pulmonary History Hx COPD: No Hx Asthma/Reactive Airway Disease: No Hx Recent Upper Respiratory Infection: No Hx Oxygen in Use at Home: No Hx Sleep Apnea: Yes Sleep Apnea Screening Result - Last Documented: Positive Pulmonary History Comment: HX of sleep apnea - cpap - Neurologic History Hx Cerebrovascular Accident: No Hx Seizures: No Hx Dementia: No Neurologic History Comment: Diabetic neuropathy both feet. - Endocrine History Hx Diabetes: Yes Hypothyroid: No Hyperthyroid: No Obesity: severe Endocrine History Comment: NIDDM - Renal History Hx Renal Disorders: Yes Renal History Comment: Enlarged prostate. NOCTURIA - Liver History Hx Hepatic Disorders: No - Neurological & Psychiatric Hx Hx Neurological and Psychiatric Disorders: No - Cancer History Hx Cancer: Yes Cancer History Comment: Prostate CA- hormone tx & radiation - Congenital Disorder History Hx Congenital Disorders: No - GI History GERD: no Hx Gastrointestinal Disorders: No - Other Health History Other Health History: Family hx - unknown blood cotting condition - takes aspirin preventative. FX nose in past-sinus issues. Upper dental bridge. Lower missing tooth. OSTEOARTHRITIS - Chronic Pain History Chronic Pain: Yes (PATRICIA LEGS/FEET) - Surgical History Prior Surgeries: COLONOSCOPY ATTEMPT 12/2017 INCOMPLETE PREP. prostate surgery FOR CA POST INTESTINAL BLOCKAGE 04/2015 ANE Review of Systems Review of Systems: - Exercise capacity METS (RN): 4 METS ANE Patient History - Allergies Allergies/Adverse Reactions: No Known Allergies Allergy (Verified 10/08/17 16:10) - Home Medications Home Medications: Aspirin [Aspirin 325 mg (*)] 325 mg PO DAILY 04/18/15 [Last Taken 07/04/18] Herbals/Supplements -Info Only 1 ea PO DAILY 04/18/15 [Last Taken 07/09/18] [place]-3 Fatty Acids [Fish Oil 1000 mg (*)] 2,000 mg PO BID 04/18/15 [Last Taken 07/09/18] Rosuvastatin Calcium [Crestor 40mg (*)] 20 mg PO HS 04/18/15 [Last Taken ] metFORMIN HCL [Glucophage 500 mg (*)] 1,000 mg PO DAILY@20 04/18/15 [Last Taken 07/09/18] metFORMIN HCL [Glucophage 500 mg (*)] 1,500 mg PO DAILY@08 04/18/15 [Last Taken 07/09/18] Gabapentin [Neurontin 100 MG (*)] 300 mg PO HS 10/03/17 [Last Taken 07/09/18] sitaGLIPtin PHOSPHATE [Januvia 100 MG (*)] 100 mg PO DAILY 10/03/17 [Last Taken 07/09/18] Docusate Sodium [Colace 100 MG (*)] 100 mg PO BID 10/08/17 [Last Taken 07/10/18] glipiZIDE [Glipizide ER] 5 mg PO DAILY 10/08/17 [Last Taken 07/09/18] Methylcellulose PO DAILY 07/04/18 [Last Taken 07/09/18] - NPO status NPO Since - Liquids (Date): 07/09/18 NPO Since - Liquids (Time): 22:00 NPO Since - Solids (Date): 07/09/18 NPO Since - Solids (Time): 19:00 - Smoking Hx Smoking Status: Never smoked - Family Anes Hx Family Anes Hx: none Family Hx Anesthesia Complications: none ANE Labs/Vital Signs - Vital Signs Blood Pressure: 143/71 Heart Rate: 83 Respiratory Rate: 14 O2 Sat (%): 94 Height: 180.34 cm Weight: 136.078 kg ANE Physical Exam - Airway Neck exam: decreased ROM Mallampati Score: Class 3 Mouth exam: normal dental/mouth exam - Pulmonary Pulmonary: clear to auscultation - Cardiovascular Cardiovascular: regular rate and rhythym - ASA Status ASA Status: III ANE Anesthesia Plan Anesthesia Plan: general endotracheal anesthesia Lines/Monitors: arterial line (Possible difficult intubation discussed.)
[2018-07-10] MEDS ORDERED: MIDAZOLAM 2 MG/2 ML VIAL IVP ONE (06:59)
[2018-07-10] MEDS ORDERED: RANITIDINE 50 MG/2 ML VIAL ONE (07:05)
[2018-07-10] MEDS ORDERED: PROPOFOL 200 MG/20 ML VIAL ONE (07:05)
[2018-07-10] MEDS ORDERED: ROCURONIUM 50 MG/5 ML VIAL ONE (07:05)
[2018-07-10] MEDS ORDERED: REMIFENTANIL HCL 1 MG VIAL ONE ×2 (07:05→08:49)
[2018-07-10] MEDS ORDERED: DEXAMETHASONE 4 MG/ML VIAL ONE (07:05)
[2018-07-10] MEDS ORDERED: fentaNYL 100 MCG/2 ML INJ ONE (07:08)
[2018-07-10] MEDS ORDERED: PHENYLEPHRINE 10 MG/ML SDV ONE (07:08)
--- NOTE | 2018-07-10 07:16 | PDHPUP ---
History & Physical Update H&P update statement: This history and physical update is based on an assessment of the patient which was completed after admission or registration (within 24 hours), but prior to the surgery/procedure. H&P update: H&P reviewed & patient examined, no change in patient's condition since H&P completed
[2018-07-10] MEDS ORDERED: HEPARIN 10,000 UNIT/10 ML MDV (1,000 UNIT/ML) ONE (07:36)
[2018-07-10] MEDS ORDERED: ONDANSETRON 4 MG/2 ML VIAL ONE (09:16)
[2018-07-10] MEDS ORDERED: SUGAMMADEX SODIUM 200 MG/2 ML VIAL IVP ONE ×2 (09:33)
--- NOTE | 2018-07-10 09:50 | POSTOPPROG ---
Post Op Note Date of Operation: 07/10/18 Surgeon: Wilfredo Jackson Business Development Intern: ADOLFO SERNA Anesthesiologist: ERIN Anesthesia: GET(General Endotracheal) Pre-op Diagnosis: CRITICAL RT CAROTID STENOSIS Post-op Diagnosis: SAME Indication: CRITICAL STENOSIS Procedure: RIGHT CAROTID ENDARTERECTOMY, DEEP CERVICAL NODE BX Findings: CALCIFIED TIGHT PLAQUE STENOSIS OVER SHORT FOCAL AREA, NO EEG CHANGES Inf/Abcess present in the surg proc area at time of surgery?: No Depth: Organ Space EBL: Minimal Complications: 0 Specimen(s): PLAQUE AND NODES
[2018-07-10] MEDS ORDERED: OXYCODONE/APAP 5/325 TAB PO PRN (09:52)
[2018-07-10] MEDS ORDERED: HYDROmorphONE/DILAUDID 1 MG/ML INJ IVP PRN (09:52)
[2018-07-10] MEDS ORDERED: ONDANSETRON 4 MG/2 ML VIAL IVP PRN ×2 (09:52→09:57)
[2018-07-10] MEDS ORDERED: fentaNYL 100 MCG/2 ML INJ IVP PRN (09:57)
[2018-07-10] MEDS ORDERED: NALOXONE HCL 0.4 MG/ML INJ IVP PRN (09:57)
[2018-07-10] MEDS ORDERED: D5W 1/2 NS W/ 20 KCl/L 1,000 ML IV SCH (10:00)
[2018-07-10] MEDS: ASPIRIN EC 81 MG TAB PO SCH ×2 (11:13→18:16)
--- NOTE | 2018-07-10 11:31 | PDMN ---
Medical Necessity Medical necessity: Pt meets inpt criteria per MD order and [facility] S-300, Carotid Endarterectomy, inpt only surgery, CPT 62298. Est LOS>2MN for management of carotid stenosis undergoing carotid endarterectomy surgery.
--- NOTE | 2018-07-10 15:06 | POSTANESTH ---
Post Anesthetic Evaluation Cardiovascular Status: Normal, Stable, Similar to Pre-Op Cond Respiratory Status: Similar to Pre-op Cond. Level of Consciousness/Mental Status: Can Participate in Eval Pain Control: Adequate, Prn Tx Ordered Nausea/Vomiting Control: Adequate, Prn Tx Ordered Complications Possibly Related to Anesthesia: None Noted
--- NOTE | 2018-07-10 15:13 | ASMTCMCOM ---
CM Note CM Note Notes: Chart reviewed. 67 year old male admitted to the ICU s/p right CEA. No anticipated needs at this point. CM to follow for changes. Plan: TBD Date Signed: 07/10/2018 03:12 PM Electronically Signed By:Loretta Cardenas RN
--- NOTE | 2018-07-10 15:58 | SOAPPROG ---
SOAP Progress Note Assessment/Plan: Assessment: STATUS POST RIGHT CEA/VITAL SIGNS STABLE/WOUND OKAY/NEURO EXAM COMPLETELY INTACT /COMFORTABLE Plan: ADVANCE DIET AND PROBABLY HOME IN THE MORNING 07/10/18 15:57 Objective: Vital Signs Temp Pulse Resp BP Pulse Ox 36.3 C 79 16 138/59 H 96 07/10/18 10:21 07/10/18 14:00 07/10/18 14:00 07/10/18 14:00 07/10/18 14:00 07/09/18 07/10/18 07/11/18 05:59 05:59 05:59 Intake Total 925 Output Total 975 Balance -50 ICD10 Worksheet Patient Problems: Problems Problem Status Onset Facial cellulitis Acute Hyperglycemia Acute Prostate cancer Acute
[2018-07-10] MEDS ORDERED: IBUPROFEN 600 MG TAB PO PRN (18:14)
[2018-07-10] MEDS ORDERED: ACETAMINOPHEN 325 MG TAB PO PRN (18:14)
[2018-07-10] MEDS ORDERED: ENALAPRILAT DIHYDRATE 1.25 MG/ML VIAL IVP PRN (18:35)
[2018-07-10] MEDS ORDERED: metFORMIN HCL 500 MG TAB PO SCH (20:00)
[2018-07-10] MEDS ORDERED: ROSUVASTATIN CALCIUM 20 MG TAB PO SCH (21:00)
[2018-07-10] MEDS ORDERED: PSYLLIUM METAMUCIL 1 PKT PO SCH (21:00)
[2018-07-10] MEDS ORDERED: GABAPENTIN 300 MG CAP PO SCH (21:00)
[2018-07-10] MEDS: OMEGA-3 FATTY ACIDS 1,000 MG CAP PO SCH (21:08)
[2018-07-10] MEDS: DOCUSATE SODIUM 100 MG CAP PO SCH (21:09)
[2018-07-11] MEDS: DOCUSATE SODIUM 100 MG CAP PO SCH (07:50)
[2018-07-11] MEDS: OMEGA-3 FATTY ACIDS 1,000 MG CAP PO SCH (07:50)
[2018-07-11] MEDS: ASPIRIN EC 81 MG TAB PO SCH (07:51)
[2018-07-11] MEDS ORDERED: ASPIRIN 325 MG TAB PO SCH (09:00)
[2018-07-11] MEDS ORDERED: glipiZIDE XL 5 MG TAB PO SCH (09:00)
[2018-07-11] MEDS ORDERED: LACTULOSE 20 GM/30 ML UDCUP PO PRN (09:24)
[2018-07-11] MEDS ORDERED: MAGNESIUM HYDROXIDE 30 ML UDCUP PO PRN (09:24)
[2018-07-11] MEDS ORDERED: BISACODYL 10 MG SUPP PR PRN (09:24)
[2018-07-11] MEDS ORDERED: POLYETHYLENE GLYCOL 3350 17 GM PKT PO PRN (09:24)
--- NOTE | 2018-07-11 09:30 | GOP ---
DATE OF OPERATION: 07/10/2018 SURGEON: Wilfredo Jackson MD PIPE THREADING MACHINE OPERATOR: Fadia Hester, Nurse Practitioner. ANESTHESIOLOGIST: Dr. Ingram. PREOPERATIVE DIAGNOSIS: Critical right carotid stenosis. POSTOPERATIVE DIAGNOSIS: Critical right carotid stenosis. PROCEDURE PERFORMED: 1. Right carotid endarterectomy with patch angioplasty and EEG monitoring. 2. Deep cervical node biopsy. FINDINGS: The patient was found to have a very tight but short calcified plaque at the origin of the internal carotid artery. He had excellent backflow. He had no EEG changes during the procedure, an d he awoke with no neurologic change. DESCRIPTION OF PROCEDURE: The patient was taken to the operating room, where he received satisfactor y general endotracheal anesthesia by Dr. Ingram. He had been systemically heparinized prior to induct ion of general anesthesia. He was prepped and draped in the usual sterile fashion. A longitudinal i ncision was made along the anterior border of the sternocleidomastoid muscle. Dissection extended do wn through the subcutaneous tissue and platysma. Superficial fascia was incised. The carotid arteri al tree was exposed. Deep cervical nodes were dissected free and removed and sent for pathology. He mostasis was obtained with hemoclips and electrocautery. The common facial vein was multiply ligated and divided. The carotid arterial tree was exposed. The common carotid, internal carotid, and exte rnal carotid arteries were all encircled with vessel loops, as was the superior thyroid artery. Afte r adequate exposure was achieved, additional heparin was given and after adequate circulation time, t he vessels were occluded. Arteriotomy was made in the common carotid artery extending through the ti ght plaque into the internal carotid artery. There were no EEG changes. The patient demonstrated ex cellent backflow flow. An expeditious endarterectomy was then done removing the short segment of deo que. The distal end was tacked down with 7-0 Prolene sutures. The wound was irrigated. All debris was removed. A Dacron patch was placed on the artery and sutured in place with a running Hemashield 7 suture. Flow was first established through the external carotid. Actually, all vessels were flush ed prior to completion of the suture line, and then flow was first established through the external c arotid artery and then through the internal carotid. Again, he had no EEG changes. The suture line was hemostatic. Heparin was reversed with protamine. The wound was sprayed with some topical thromb in and closed in layers using 3-0 Vicryl for the superficial fascia, 3-0 Vicryl for the platysma and subcutaneous tissue, and a 4-0 Monocryl subcuticular stitch for the skin. All layers were infiltrate d with 0.5% Marcaine. He tolerated the procedure well, was taken to the recovery room in good condit ion. He awoke neurologically intact, moving all extremities and responding appropriately. /[id number]/MODL
--- NOTE | 2018-07-11 09:40 | SOAPPROG ---
SOAP Progress Note Assessment/Plan: Assessment: 67 y/o M s/p R CEA POD #1 S: No complaints. Denies pain. Denies stroke like symptoms. Biggest concern is having a BM prior to leaving the hospital. Reports that he was readmitted with an SBO last time he had surgery. O:Alert Afebrile BP slightly elevated Neck: incision cdi, nontender No increased WOB, CTA bilaterally Abdomen: normoactive BS Neuro: Grossly intact Plan: Miralax to avoid constipation. Pt would like to stay until he has a BM. Appreciate business services director input for BP. 07/11/18 09:37 Objective: Vital Signs Temp Pulse Resp BP Pulse Ox 36.8 C 82 20 145/52 H 95 07/11/18 07:37 07/11/18 07:37 07/11/18 07:37 07/11/18 07:37 07/11/18 07:37 07/10/18 07/11/18 07/12/18 05:59 05:59 05:59 Intake Total 2032 890 Output Total 1225 Balance 2146 890 ICD10 Worksheet Patient Problems: Problems Problem Status Onset Facial cellulitis Acute Hyperglycemia Acute Prostate cancer Acute
--- NOTE | 2018-07-11 12:18 | ASMTCMCOM ---
CM Note CM Note Notes: Chart reviewed. Likely to dc with no needs. Awaiting BM prior to discharge, No needs identified. CM available should needs arise. Plan: Home with family support. Date Signed: 07/11/2018 12:17 PM Electronically Signed By:Loretta Cardenas RN
--- NOTE | 2018-07-11 14:52 | PDHOSCONS ---
History and Physical - Chief Complaint Acute constipation - History of Present Illness Primary care provider: Dr. Wade Arvizu Primary general surgeon: Dr. Wilfredo Jackson Primary manager eligibility: Dr. Fisher Primary urologist: Dr. Escobedo HPI: 67-year-old male presenting for elective right-sided CEA complicated by acute constipation characterized as inability to move his bowels during his hospitalization, with onset of symptoms during this hospitalization following his CEA, alleviated by MiraLax received on the day of this consultation. The patient has subsequently experienced a moderate volume bowel movement. As he denies any significant right-sided neck pain, and does report that he has intermittently experienced some associated joint pain exacerbated by immobility , alleviated with ibuprofen. He reports that he takes ibuprofen 2-4 times per day, most recently 2 times per day leading up to this hospitalization, on a fairly consistent basis. He denies any change in urine output, and reports that his blood pressure is normally between 120 and 130 when he has it checked at his endocrinology or primary care offices. History Information - Allergies/Home Medication List Allergies/Adverse Reactions: No Known Allergies Allergy (Verified 10/08/17 16:10) Home Medications: Aspirin [Aspirin 325 mg (*)] 325 mg PO DAILY 04/18/15 [Last Taken 07/04/18] Herbals/Supplements -Info Only 1 ea PO DAILY 04/18/15 [Last Taken 07/09/18] Huson-3 Fatty Acids [Fish Oil 1000 mg (*)] 2,000 mg PO BID 04/18/15 [Last Taken 07/09/18] Rosuvastatin Calcium [Crestor 40mg (*)] 20 mg PO HS 04/18/15 [Last Taken ] metFORMIN HCL [Glucophage 500 mg (*)] 1,000 mg PO DAILY@04/18/15 [Last Taken 07/09/18] metFORMIN HCL [Glucophage 500 mg (*)] 1,500 mg PO DAILY@08 04/18/15 [Last Taken 07/09/18] Gabapentin [Neurontin 100 MG (*)] 300 mg PO HS 10/03/17 [Last Taken 07/09/18] sitaGLIPtin PHOSPHATE [Januvia 100 MG (*)] 100 mg PO DAILY 10/03/17 [Last Taken 07/09/18] Docusate Sodium [Colace 100 MG (*)] 100 mg PO BID 10/08/17 [Last Taken 07/10/18] glipiZIDE [Glipizide ER] 5 mg PO DAILY 10/08/17 [Last Taken 07/09/18] Psyllium Husk/Aspartame [Metamucil Fiber Singles Packet] 3.4 gm PO DAILY [Last Taken Unknown] I have personally reviewed and updated: family history, medical history, social history, surgical history - Past Medical History diabetes type 2 (With neuropathy) Additional medical history: sleep apnea - on cpap. Type 2 DM. hyperlipidemia. peripheral neuropathy. h/o prostate cancer. Small-bowel obstruction following prostate surgery - Surgical History Additional surgical history: prostate surgery. 07/10/2018 right-sided CEA - Family History Additional family history: dad age 97. mom of kidney failure. Sibling with prostate cancer at age 61 - Social History Smoking Status: Former smoker Alcohol Use: Occasionally Drug Use: None (Normally independent in ADLs) Additional social history: Lives with his sister and her son. He is independent in his ADL's. He is a general internist and physician leader. Review of Systems Review of Systems: ROS: 10pt was reviewed & negative except for what was stated in HPI & below EENMT: Reports: other (Intermittent neck pain) Gastrointestinal: Reports: constipation Muscolosketal: Reports: other (Intermittent joint pains) Physical Exam Physical Exam: Temp Pulse Resp BP Pulse Ox 36.6 C 93 10 L 138/60 H 95 07/11/18 12:00 07/11/18 14:00 07/11/18 14:00 07/11/18 14:00 07/11/18 14:00 O2 (L/minute) 1 Constitutional: no apparent distress, not in pain, obese, No uncomfortable Eyes: PERRL, anicteric sclera, EOMI Ears, Nose, Mouth, Throat: moist mucous membranes, hearing normal, ears appear normal, no oral mucosal ulcers Cardiovascular: regular rate and rhythym, systolic murmur (2/6 at the sternum), No irregularly irregular, No tachycardia, No edema Respiratory: no respiratory distress, no rales or rhonchi, clear to auscultation Gastrointestinal: normoactive bowel sounds, soft, non-tender abdomen, no palpable masses, distension (Obese) Skin: warm, other (Mild inflammation at right neck surgery site without overt induration or erythema) Neurologic: AAOx3, No facial droop Psychiatric: interacting appropriately, not anxious, not encephalopathic, thought process linear Lab Data & Imaging Review Puncture Site ARTERIAL LINE 07/10/18 08:20 Patient Temperature 37.0 DEGREES 07/10/18 08:20 pCO2 40 mmHg (34-38) H 07/10/18 08:20 pO2 263 mmHg (65-75) H 07/10/18 08:20 Total CO2 19 mEq/L (23-27) L 07/10/18 08:20 ABG pH 7.27 (7.35-7.45) L 07/10/18 08:20 ABG HCO3 18 mEq/L (22-26) L 07/10/18 08:20 ABG O2 Saturation 99 % (92-95) H 07/10/18 08:20 ABG Base Excess -8.4 mEq/L (-2.5-2.5) L 07/10/18 08:20 ABG Hemoglobin 12.4 gm/dL (14.5-17.3) L 07/10/18 08:20 POC Sodium 137 mEq/L (137-146) 07/10/18 08:20 POC Potassium 4.3 mEq/L (3.3-5.0) 07/10/18 08:20 POC Glucose 223 mg/dL (70-100) H 07/10/18 10:48 Ionized Calcium 1.18 MMOL/L (1.12-1.30) 07/10/18 08:20 Assessment & Plan Assessment: 67-year-old male presents for right-sided CEA in the setting of carotid stenosis , complicated by suspected hypertension Plan: 1. Suspected hypertension. Consult it by General surgery to address elevated systolic blood pressures ranging between 120 and 160 throughout this hospitalization -patient reports previous blood pressure ranges between 120 and 130, but he admits that he does not routinely get his blood pressure checked in the outpatient setting and I question whether the patient has developed hypertension in the setting of morbid obesity, obstructive sleep apnea, diabetes -given the patient is in the immediate postoperative window and his systolic blood pressures have been wandering into a range where they can cause postoperative complications, notably greater than 160, I think it is prudent to initiate him on a low antihypertensive medication -discussed with patient, he is amenable to lisinopril 2.5 mg once daily -the patient is amenable to getting his creatinine BUN and lytes checked on the day prior to his follow-up appoint with his primary care provider and he will have his primary care provider follow-up his blood pressure reading within the next week to ensure that he is not being overmedicated and determine whether he requires up titration is medication -KYLE-inhibitor will be ideal in this patient with underlying diabetes 2. Diabetes mellitus type 2 with neuropathy. Glucose levels during this hospitalization 160-223, unclear whether these are fasting, continue patient on his home medications, reviewed outside labs including chemistry from 07/07/2018 demonstrating a normal serum creatinine level 0.6 and most recent hemoglobin A1c of 7.1% -continue outpatient oral glycemic agents 3. Constipation. Reviewed outside records, which demonstrated the patient did have small-bowel obstruction following his urology surgery, the patient has received MiraLax and his constipation has been alleviated -reviewed additional outside records including 10/11/2017 discharge summary by Tigist Blunt, reporting patient was here for facial cellulitis receiving Ancef, has not had any subsequent hospitalizations for bowel issues in the interim 4. Obstructive sleep apnea. Chronic, encouraged ongoing use of CPAP, to mitigate secondary hypertension Patient is medically stable for discharge at this time, and I have communicated my recommendations above with surgery provider Fadia Hester. I provided the patient with a script for his labs, script for his medication.
[2018-07-11] MEDS ORDERED: LISINOPRIL 2.5 MG TAB PO SCH (15:00)
[2018-07-11 15:24] VITALS: BP 147/50
[2018-07-12] MEDS ORDERED: metFORMIN HCL 500 MG TAB PO SCH (08:00)
== END 2018-07-11 15:45 | disposition home or self-care (01) | DRG 39 ==
LOC: F3E 05:38 → F2N 07:02
PROVIDERS: ADMIT Surgery; ATTEND Surgery
PROC: 03CK0ZZ Extirpation of Matter from Right Internal Carotid Artery, Open Approach (ICD-10-PCS; principal; 2018-07-10 07:15)
PROC: 07B30ZX Excision of Right Upper Extremity Lymphatic, Open Approach, Diagnostic (ICD-10-PCS; principal; 2018-07-10 07:15)
DX: I65.21 Occlusion and stenosis of right carotid artery (principal); I10 Essential (primary) hypertension; D64.9 Anemia, unspecified; E11.42 Type 2 diabetes mellitus with diabetic polyneuropathy; E78.5 Hyperlipidemia, unspecified; E66.01 Morbid (severe) obesity due to excess calories; G47.33 Obstructive sleep apnea (adult) (pediatric); K59.00 Constipation, unspecified; Z85.46 Personal history of malignant neoplasm of prostate; Z80.42 Family history of malignant neoplasm of prostate
CPT/HCPCS: C1768; J0690; J1100; J1644; J2250; J2370; J2405; J2704; J2720; J2780; J3010

== ENCOUNTER 2018-07-11 22:17 | Emergency (ER) | payer OTHER ==
[2018-07-11] MEDS ORDERED: IBUPROFEN 200 MG TAB PO ONE (22:46)
--- NOTE | 2018-07-11 22:57 | EDPHY ---
H & P Stated Complaint: BLEEDING INCISION/R CAROTID SX YEST Time Seen by Provider: 07/11/18 22:43 HPI/ROS: HPI The patient presents with swelling and bleeding from his right-sided carotid endarterectomy which was performed yesterday by Dr. Jackson. Patient was discharged from the hospital in the afternoon today. He noticed that the area adjacent to the surgical site was swelling. He then sat on the toilet to have a bowel movement in strained quite a bit. After that he developed some bleeding from the inferior aspect of the wound which was dripping into the sink and onto his abdomen though there were no clots. He does not have any shortness of breath or difficulty swallowing. REVIEW OF SYSTEMS Constitutional: No fever, no chills. Eyes: No discharge. ENT: No sore throat. Cardiovascular: No chest pain, no palpitations. Respiratory: No cough, no shortness of breath. Gastrointestinal: No abdominal pain, no vomiting. Genitourinary: No hematuria. Musculoskeletal: No back pain. Skin: No rashes. Neurological: No headache. PMHx: Postop day 1 from right-sided carotid endarterectomy Soc Hx: Here with family member PHYSICAL General Appearance: Alert, no distress Head: There is an approximately 10 cm surgical incision which superiorly has a 5 cm area of edema and tissue distension, on the most inferior margins of the wound there is a small amount of oozing through a punctate area ENT, Mouth: Mucous membranes moist Respiratory: Breathing comfortably Neurological: A&O, moves all extremities Skin: Warm and dry, no rashes Musculoskeletal: Neck is supple non tender Extremities: symmetrical, full range of motion Psychiatric: Patient is oriented X 3, there is no agitation Source: Patient Exam Limitations: No limitations - Personal History Current Tetanus Diphtheria and Acellular Pertussis (TDAP): No - Medical/Surgical History Hx Asthma: No Hx Chronic Respiratory Disease: No Hx Diabetes: Yes Hx Cardiac Disease: No Hx Renal Disease: No Hx Cirrhosis: No Hx Alcoholism: Yes Hx HIV/AIDS: No Hx Splenectomy or Spleen Trauma: No Other PMH: prostate cancer, diabetes mellitus type 2. ALANNAH-CPAP, R CAROTID SX - Social History Smoking Status: Former smoker Constitutional: Initial Vital Signs Temperature (C) 36.8 C 07/11/18 22:22 Heart Rate 91 07/11/18 22:22 Respiratory Rate 16 07/11/18 22:22 Blood Pressure 162/70 H 07/11/18 22:22 O2 Sat (%) 95 07/11/18 22:22 O2 Delivery Mode Room Air Allergies/Adverse Reactions: No Known Allergies Allergy (Verified 10/08/17 16:10) Home Medications: Medication Instructions Recorded Aspirin [Aspirin 325 mg (*)] 325 mg PO DAILY 04/18/15 Herbals/Supplements -Info Only 1 ea PO DAILY 04/18/15 Sneads-3 Fatty Acids [Fish Oil 1000 2,000 mg PO BID 04/18/15 mg (*)] Rosuvastatin Calcium [Crestor 40mg 20 mg PO HS 04/18/15 (*)] metFORMIN HCL [Glucophage 500 mg 1,000 mg PO DAILY@04/18/15 (*)] metFORMIN HCL [Glucophage 500 mg 1,500 mg PO DAILY@04/18/15 (*)] Gabapentin [Neurontin 100 MG (*)] 300 mg PO HS 10/03/17 sitaGLIPtin PHOSPHATE [Januvia 100 100 mg PO DAILY 10/03/17 MG (*)] Docusate Sodium [Colace 100 MG (*)] 100 mg PO BID 10/08/17 glipiZIDE [Glipizide ER] 5 mg PO DAILY 10/08/17 Acetaminophen [Tylenol 325mg (*)] 650 mg PO Q4HRS PRN tab 10/11/17 Ibuprofen [Motrin (*)] 600 mg PO Q8H PRN tab 10/11/17 Psyllium Husk/Aspartame [Metamucil 3.4 gm PO DAILY 07/10/18 Fiber Singles Packet] Polyethylene Glycol 3350 [Miralax 17 gm PO DAILY PRN pkt 07/11/18 17 gm (*)] Medical Decision Making Differential Diagnosis: 67-year-old male postop day 1 from carotid endarterectomy presents with edema at site of operation with bleeding. I suspect he has a hematoma or seroma in addition to some very minor wound dehiscence. I have consulted with Dr. Wells on-call for Dr. Jackson and he will come to the emergency department to evaluate the patient. The patient was evaluated, pressure dressing was applied and patient was given ice packs. He feels comfortable going home. It is suspected that he has hematoma though there is no evidence of airway involvement. He will follow up with Dr. Jackson later this week. - Data Points Medications Given: Discontinued Medications Ibuprofen (Motrin) 400 mg PO ONCE ONE Stop: 07/11/18 22:47 Last Admin: 07/11/18 22:47 Dose: 400 mg Departure - Departure Disposition: Home, Routine, Self-Care Clinical Impression: Hematoma, Surgical wound dehiscence Condition: Good Instructions: Hematoma (ED) Additional Instructions: Please return to the emergency department if you are worse in any way. You should use ice packs and the dressing that you have been given. Referrals: Wade Arvizu MD [Primary Care Provider] - As per Instructions Wilfredo Jackson MD [Medical Doctor] - As per Instructions
[2018-07-11 23:22] VITALS: BP 163/81
--- NOTE | 2018-07-11 23:59 | GCON ---
DATE OF CONSULTATION: 07/11/2018 CHIEF COMPLAINT: Right neck hematoma. HISTORY OF PRESENT ILLNESS: This is a 67-year-old male who underwent right carotid endarterectomy on the . He had an uneventful hospital course. He was subsequently sent home earlier today, in sta ble condition back on his aspirin. He states that when he went home, there was some mild swelling in his neck, but not to the level of what it was at his presentation tonight. He states that he had a bowel movement. He did strain somewhat and noticed that the superior portion of the incision began t o get a little bit bigger than the inferior portion, which prompted his presentation here. He has no airway issues, no swallowing issues. He is mainly just here to get it checked out. His pain has be en stable. It has been pretty well controlled with ibuprofen alone. Other than the swelling in the area, he has no complaints. PAST MEDICAL HISTORY: Anemia, carotid stenosis, type 2 diabetes, hyperlipidemia, morbid obesity, obs tructive sleep apnea, peripheral neuropathy, prostate cancer, thrombocytopenia. PAST SURGICAL HISTORY: Carotid endarterectomy 1 day ago. CURRENT MEDICATIONS: Include aspirin, some diabetes medications; no other blood thinners. ALLERGIES: None. FAMILY HISTORY: Noncontributory. SOCIAL HISTORY: The patient is a former smoker. He lives in the area. He is here with his son. He denies illicit drug use. REVIEW OF SYSTEMS: A full 10-point review was performed. PHYSICAL EXAMINATION: VITAL SIGNS: Temperature 36.8, blood pressure 163/81, heart rate is 86, and h e is 96% on room air. CONSTITUTIONAL: He is in no distress. He appears comfortable. EYES: His pu pils are equal, round, and reactive to light and accommodation. He has anicteric sclerae. His extra ocular movements are intact. EARS, NOSE, MOUTH, THROAT: Moist mucous membranes. Oral exam shows no intrusion of the oral cavity, no hematomas, no voice changes, no swallowing issues, and a stable air way. CARDIOVASCULAR: He has a regular rate and rhythm. RESPIRATORY: No respiratory distress, rale s, or rhonchi. GI: His abdomen is soft, nondistended, nontender. SKIN: He has a superior hematoma on his neck. He has a sizable incision extending the length of his neck. It is tender to palpation . It is nonpulsatile or fluctuant. The superior portion is greater in the inferior portion. No oth er abrasions or apparent skin findings. MUSCULOSKELETAL: Full strength. Full range of motion. No weakness. NEUROLOGIC: He is alert and oriented x3. His cranial nerves 2-12 are intact. PSYCH: He is interacting appropriately. He is not encephalopathic. He is protecting his airway. LYMPH, HEME , IMMUNOLOGIC: No cervical, groin lymphadenopathy is appreciated. LABS: None. IMAGING: None. ASSESSMENT AND PLAN: 67-year-old male, now 1 day out status post carotid endarterectomy, discharged earlier today; now re-presenting with hematoma in the neck. After evaluating the neck, it feels stab le. I do not feel that this is an arterial bleed. It is likely a slow venous ooze, which was exacer bated with straining. I re-dressed the area. The patient has no airway or swallowing concerns at th is point. I did discuss with him to watch for these if it were to get any worse. I think it is safe to send him home. I asked that he hold all blood thinners through the weekend and try to keep gentl e pressure on the area. He is also going to start a laxative to ensure that he does not get constipa dani. He will call to follow up early next week. /[id number]/MODL
== END 2018-07-11 23:29 | disposition home or self-care (01) ==
DX: L76.32 Postprocedural hematoma of skin and subcutaneous tissue following other procedure (principal); T81.31XA Disruption of external operation (surgical) wound, not elsewhere classified, initial encounter; Z87.891 Personal history of nicotine dependence; Z98.890 Other specified postprocedural states

== ENCOUNTER 2018-07-28 12:37 | Day surgery (SDC) | payer OTHER ==
[2018-07-28] MEDS ORDERED: LIDOCAINE 1% 2 ML INJ ID PRN (12:50)
[2018-07-28] MEDS ORDERED: LR 1,000 ML IV ONE (12:50)
--- NOTE | 2018-07-28 14:14 | PDGENHP ---
History & Physical Chief Complaint: phx polyps History of Present Illness: 68 year old male with a phx of polyps presents for surveillance colonoscopy. Pertinent Past, Social, Family History: See anesthesiology note Relevant Physical Exam: HEENT: anicteric. CV: RRR +s1s2. Lungs: CTAB No w/r/ r. Abd: soft, nt, + Bs Cardiorespiratory Assessment: ASA 3
--- NOTE | 2018-07-28 14:18 | PDANEPAE ---
ANE History of Present Illness h/o polyps ANE Past Medical History - Cardiovascular History Hx Hypertension: No Hx Arrhythmias: No Hx Chest Pain: No Hx Coronary Artery / Peripheral Vascular Disease: No Hx CHF / Valvular Disease: No Hx Palpitations: No Cardiovascular History Comment: CAROTID STENOSIS - Pulmonary History Hx COPD: No Hx Asthma/Reactive Airway Disease: No Hx Recent Upper Respiratory Infection: No Hx Oxygen in Use at Home: No Hx Sleep Apnea: Yes Sleep Apnea Screening Result - Last Documented: Positive Pulmonary History Comment: HX of sleep apnea - cpap - Neurologic History Hx Cerebrovascular Accident: No Hx Seizures: No Hx Dementia: No Neurologic History Comment: Diabetic neuropathy both feet. - Endocrine History Hx Diabetes: Yes Endocrine History Comment: NIDDM - Renal History Hx Renal Disorders: Yes Renal History Comment: Enlarged prostate. NOCTURIA - Liver History Hx Hepatic Disorders: No - Neurological & Psychiatric Hx Hx Neurological and Psychiatric Disorders: No - Cancer History Hx Cancer: Yes Cancer History Comment: Prostate CA- hormone tx & radiation - Congenital Disorder History Hx Congenital Disorders: No - GI History Hx Gastrointestinal Disorders: No - Other Health History Other Health History: Family hx - unknown blood cotting condition - takes aspirin preventative. FX nose in past-sinus issues. Upper dental bridge. Lower missing tooth. OSTEOARTHRITIS - Chronic Pain History Chronic Pain: Yes (PATRICIA LEGS/FEET) - Surgical History Prior Surgeries: COLONOSCOPY ATTEMPT 12/2017 INCOMPLETE PREP. prostate surgery FOR CA POST INTESTINAL BLOCKAGE 04/2015 ANE Review of Systems Review of Systems: - Exercise capacity METS (RN): 4 METS ANE Patient History - Allergies Allergies/Adverse Reactions: No Known Allergies Allergy (Verified 10/08/17 16:10) - Home Medications Home Medications: RX: Aspirin [Aspirin 325 mg (*)] 325 mg PO DAILY 04/18/15 [Last Taken 07/26/18] RX: Herbals/Supplements -Info Only 1 ea PO DAILY 04/18/15 [Last Taken 07/25/18] RX: Aquilla-3 Fatty Acids [Fish Oil 1000 mg (*)] 2,000 mg PO BID 04/18/15 [Last Taken 07/25/18] RX: Rosuvastatin Calcium [Crestor 40mg (*)] 20 mg PO HS 04/18/15 [Last Taken ] RX: metFORMIN HCL [Glucophage 500 mg (*)] 1,000 mg PO DAILY@20 04/18/15 [Last Taken 07/27/18] RX: metFORMIN HCL [Glucophage 500 mg (*)] 1,500 mg PO DAILY@04/18/15 [Last Taken 07/28/18 07:00] RX: Gabapentin [Neurontin 100 MG (*)] 300 mg PO HS 10/03/17 [Last Taken 07/25/18 ] RX: sitaGLIPtin PHOSPHATE [Januvia 100 MG (*)] 100 mg PO DAILY 10/03/17 [Last Taken 07/25/18] RX: Docusate Sodium [Colace 100 MG (*)] 100 mg PO BID 10/08/17 [Last Taken 07/25] RX: glipiZIDE [Glipizide ER] 5 mg PO DAILY 10/08/17 [Last Taken 07/25/18] RX: Psyllium Husk/Aspartame [Metamucil Fiber Singles Packet] 3.4 gm PO DAILY 04/21 [Last Taken 07/25/18] Lisinopril 07/28/18 [Last Taken 07/28/18 07:00] Melatonin 3 MG (*) 07/28/18 [Last Taken 07/27/18 22:00] - NPO status NPO Since - Liquids (Date): 07/28/18 NPO Since - Liquids (Time): 05:30 NPO Since - Solids (Date): 07/26/18 NPO Since - Solids (Time): 09:00 - Smoking Hx Smoking Status: Former smoker - Family Anes Hx Family Hx Anesthesia Complications: none ANE Labs/Vital Signs - Vital Signs Blood Pressure: 126/62 Heart Rate: 93 Respiratory Rate: 18 O2 Sat (%): 95 Height: 180.34 cm Weight: 136.078 kg ANE Physical Exam - Airway Neck exam: decreased ROM Mallampati Score: Class 3 Mouth exam: normal dental/mouth exam - Pulmonary Pulmonary: no respiratory distress - Cardiovascular Cardiovascular: regular rate and rhythym - ASA Status ASA Status: III ANE Anesthesia Plan Total IV Anesthesia: Yes
[2018-07-28] MEDS ORDERED: PROPOFOL/EMULSION 500 MG/50 ML BOTTLE IV ONE (14:20)
[2018-07-28] MEDS ORDERED: NALOXONE HCL 0.4 MG/ML INJ IVP PRN (14:38)
--- NOTE | 2018-07-28 15:09 | POSTANESTH ---
Post Anesthetic Evaluation Cardiovascular Status: Normal, Stable Respiratory Status: Normal, Stable Level of Consciousness/Mental Status: Can Participate in Eval Pain Control: Adequate, Prn Tx Ordered Nausea/Vomiting Control: Adequate, Prn Tx Ordered Complications Possibly Related to Anesthesia: None Noted
[2018-07-28 15:55] VITALS: BP 133/62
--- NOTE | 2018-07-31 11:09 | GIREPORT ---
[facility] Surgical Services - Endoscopy Department Patient Name: Antonio Barragan Procedure Date: 07/28/2018 2:12 PM Patient Type: Outpatient Attending MD/ ER Physician: Lenin Sorensen MD Procedure: Colonoscopy Indications: High risk colon cancer surveillance: Personal history of colonic polyps Patient Profile: 68 year old male with a personal history of polyps presents for surveil abilio colonoscopy. Providers: Lenin Sorensen MD Medicines: Monitored Anesthesia Care Complications: No immediate complications. Estimated blood loss: Minimal. Description of Procedure: After obtaining informed consent, the scope was passed under direct vis ion. Throughout the procedure, the patient's blood pressure, pulse, and oxyg en saturations were monitored continuously. The Colonoscope with irrigatio n channel was introduced through the anus and advanced to the cecum, identified by appendiceal orifice and ileocecal valve. The colonoscopy was performed without difficulty. The patient tolerated the procedure well. The quality of the bowel preparation was good. The ileocecal valve, appendi ceal orifice, and rectum were photographed. Findings: The perianal and digital rectal examinations were normal. Pertinent negatives include no palpable rectal lesions. Many diverticula were found in the sigmoid colon. A 4 mm polyp was found in the ascending colon. The polyp was sessile. T he polyp was removed with a cold biopsy forceps. Resection and retrieval w ere complete. A 4 mm polyp was found in the transverse colon. The polyp was sessile. The polyp was removed with a cold snare. Resection and retrieval were compl ete. A 5 mm polyp was found in the ascending colon. The polyp was sessile. T he polyp was removed with a cold snare. Resection was complete, but the po lyp tissue was not retrieved. Estimated Blood Loss: Estimated blood loss was minimal. Post Op Diagnosis: - Diverticulosis in the sigmoid colon. - One 4 mm polyp in the ascending colon, removed with a cold biopsy for ceps. Resected and retrieved. - One 4 mm polyp in the transverse colon, removed with a cold snare. Resected and retrieved. - One 5 mm polyp in the ascending colon, removed with a cold snare. Com plete resection. Polyp tissue not retrieved. Recommendation: - Discharge patient to home (with escort). - Resume previous diet. - Continue present medications. - Await pathology results. - Repeat colonoscopy in 3 - 5 years for surveillance based on pathology results (3 years if 2 adenomas since 1 not retrieved) - Thank you for allowing me to particpate in the care of your patient. Attending Participation: I personally performed the entire procedure. Lenin Sorensen MD Lenin Sorensen MD 07/28/2018 3:28:09 PM This report has been signed electronicallyLenin Sorensen MD Number of Addenda: 0 Note Initiated On: 07/28/2018 2:12 PM Total Procedure Duration Time 0 hours 28 minutes 34 seconds [email or web address]
== END 2018-07-28 16:00 | disposition home or self-care (01) ==
LOC: FSGY 12:37
PROVIDERS: ATTEND Internal Medicine Gastroenterology
PROC: 0DBL8ZX Excision of Transverse Colon, Via Natural or Artificial Opening Endoscopic, Diagnostic (ICD-10-PCS; principal; 2018-07-28 14:15)
PROC: 0DBK8ZX Excision of Ascending Colon, Via Natural or Artificial Opening Endoscopic, Diagnostic (ICD-10-PCS; principal; 2018-07-28 14:15)
DX: Z12.11 Encounter for screening for malignant neoplasm of colon (principal); D12.2 Benign neoplasm of ascending colon; D12.3 Benign neoplasm of transverse colon; Z87.19 Personal history of other diseases of the digestive system; E11.40 Type 2 diabetes mellitus with diabetic neuropathy, unspecified; N40.0 Benign prostatic hyperplasia without lower urinary tract symptoms; Z85.46 Personal history of malignant neoplasm of prostate
CPT/HCPCS: J2704